=== PATIENT | male | born 1965 | race Caucasian/White ===

== ENCOUNTER 2017-04-22 20:51 | Emergency (ER) | payer OTHER ==
[2017-04-22 21:02] VITALS: BP 119/74; PULSE 68; TEMP 97.9; BMI 32.1
--- NOTE | 2017-04-22 21:51 | PDOC ---
History of Present Illness - General History Source: Patient Exam Limitations: No Limitations - History of Present Illness Initial Comments: 04/22/17 22:04 The patient is a 52 year old male with a significant past medical history of DM , HTN, and HLD who presents to the ED with left calf pain for a week. The patient reports a sudden onset of pain to the medial aspect of his left calf while he was running on a treadmill on Sunday. He states he felt like he pulled a muscle. Patient reports taking motrin for pain with slight relief of present symptoms. Patient states his symptoms progressively worsened earlier today and he reports an onset of sharp left calf pain while he was at work earlier today. He states he also noticed slight swelling to his left calf earlier. Denies fever or chills. Denies any other symptoms. Social hx: The patient works at the [employer]. <Marli Casas - Last Filed: 04/22/17 23:42> <Lucrecia Chu - Last Filed: 04/22/17 23:48> - General Chief Complaint: Pain, Acute Stated Complaint: LEFT LEG PAIN Time Seen by Provider: 04/22/17 21:35 Past History <Marli Casas - Last Filed: 04/22/17 23:42> - Past Medical History COPD: No Diabetes: Yes (2) HTN: Yes Hypercholesterolemia: Yes - Suicide/Smoking/Psychosocial Hx Smoking History: Former smoker Have you smoked in the past 12 months: No Information on smoking cessation initiated: No <Lucrecia Chu - Last Filed: 04/22/17 23:48> - Past Medical History Allergies/Adverse Reactions: Allergies Allergy/AdvReac Type Severity Reaction Status Date / Time No Known Allergies Allergy Verified 04/22/17 20:58 Home Medications: Ambulatory Orders Aspirin 81 mg PO DAILY 04/22/17 Atorvastatin Ca [Lipitor] 40 mg PO HS 04/22/17 Carvedilol [Coreg -] 6.25 mg PO BID 04/22/17 Glipizide Xl [Glucotrol Xl -] 10 mg PO DAILY@0700 04/22/17 Hydrochlorothiazide [Hctz -] 25 mg PO DAILY 04/22/17 Lisinopril [Prinivil -] 40 mg PO DAILY 04/22/17 Sitagliptin Phos/Metformin HCl [Janumet Xr 50-1,000 mg Tablet] 1 each PO ASDIR 04/22/17 Review of Systems - Review of Systems Able to Perform ROS?: Yes Comments:: 04/22/17 22:04 CONSTITUTIONAL: Absent: fever, no chills, no fatigue EYES: Absent: visual changes ENT: Absent: ear pain, no sore throat CARDIOVASCULAR: Absent: chest pain, no palpitations RESPIRATORY: Absent: cough, no SOB GI: Absent: abdominal pain, no nausea, no vomiting, no constipation, no diarrhea GENITOURINARY: Absent: dysuria, no frequency, no hematuria MUSKULOSKELETAL: + left calf pain Absent: back pain SKIN: Absent: rash NEURO: Absent: headache All Other Systems: Reviewed and Negative <Marli Casas - Last Filed: 04/22/17 23:42> *Physical Exam - Vital Signs Last Vital Signs Temp Pulse Resp BP Pulse Ox 97.9 F 68 16 119/74 97 04/22/17 21:00 04/22/17 21:00 04/22/17 21:00 04/22/17 21:00 04/22/17 21:00 - Physical Exam Comments: 04/22/17 22:04 GENERAL: Well-appearing, well-nourished. No apparent distress. HEENT: Normocephalic, atraumatic. PERRL, EOM intact. CARDIOVASCULAR: Normal S1, S2. Regular rate and rhythm. PULMONARY: Clear to auscultation bilaterally. ABDOMEN: Soft, non-distended, non-tender. EXTREMITIES: Normal ROM in all four extremities. No gross deformities. Dorsiflex, plantarflex. SKIN: Warm, dry. No rash NEUROLOGICAL: No focal neurological deficits. <Marli Casas - Last Filed: 04/22/17 23:42> - Vital Signs Last Vital Signs Temp Pulse Resp BP Pulse Ox 97.9 F 68 16 119/74 97 04/22/17 21:00 04/22/17 21:00 04/22/17 21:00 04/22/17 21:00 04/22/17 21:00 <Lucrecia Chu - Last Filed: 04/22/17 23:48> ED Treatment Course - RADIOLOGY Radiograph Interpretation: 04/22/17 23:42 US LOWER EXTREMITY VENOUS DOPPLER IMPRESSION: No DVT Reported by: Imaging financial foundations representative <Marli Casas - Last Filed: 04/22/17 23:42> Medical Decision Making - Medical Decision Making 04/22/17 23:42 Patient is refusing plain film. <Marli Casas - Last Filed: 04/22/17 23:42> - Medical Decision Making 04/22/17 23:44 Duplex doppler NEGATIVE for dvt in left leg pt told to please followup with orthopedist if pain persists IMP muscle strain <Lucrecia Chu - Last Filed: 04/22/17 23:48> *DC/Admit/Observation/Transfer - Attestations Scribe Attestion: 04/22/17 22:04 Documentation prepared by Marli Casas, acting as medical superintendent for Lucrecia Chu MD <Marli Casas - Last Filed: 04/22/17 23:42> <Lucrecia Chu - Last Filed: 04/22/17 23:48> Diagnosis at time of Disposition: Leg pain, left - Discharge Dispostion Disposition: HOME Condition at time of disposition: Stable - Referrals Referrals: Joceline Pak MD [Primary Care Provider] - Israel Torres MD [Staff Physician] - - Patient Instructions Printed Discharge Instructions: DI for Leg Pain, DI for Calf Muscle Strain Additional Instructions: please followup with an orthopedist if your pain persists take tylenol or motrin or aleve for pain - Post Discharge Activity
== END 2017-04-22 23:53 | disposition home or self-care (01) ==
LOC: JER 20:51 → JERFT 20:51 → JER 23:53
DX: S86.112A Strain of other muscle(s) and tendon(s) of posterior muscle group at lower leg level, left leg, initial encounter (principal); X50.3XXA Overexertion from repetitive movements, initial encounter; Y93.B1 Activity, exercise machines primarily for muscle strengthening; Y92.89 Other specified places as the place of occurrence of the external cause; Y99.8 Other external cause status
CPT/HCPCS: 93971-TC; 99281-25

== ENCOUNTER 2018-01-15 09:57 | Day surgery (SDC) | payer OTHER ==
[2018-01-09 14:49] VITALS: BMI 31.9
[2018-01-15 11:32] VITALS: TEMP 98.2
[2018-01-15 13:18] VITALS: BP 127/78; PULSE 81
--- NOTE | 2018-01-16 16:19 | PATH ---
Surgical Pathology Report Patient Name: FARTUN ARROYO [facility]. Rec. #: [id number] /Age/Gender: 1965 (Age: 52) / M Account: [id number] Location: [facility]-ENDOSCOPY Taken: 01/15/2018 Received: 01/15/2018 Reported: 01/16/2018 Physicians: Richar Allen D.O. Specimen(s) Received BX DESCENDING COLON POLYP Clinical History Colon screening Postoperative diagnosis: colon polyp, hemorrhoids Final Diagnosis DESCENDING COLON POLYP, POLYPECTOMY: HYPERPLASTIC POLYP. Electronically Signed Donnell Durant M.D. Gross Description Received in formalin, labeled "polyp descending" are 2 amor, irregular portions of soft tissue measuring 0.1 and 0.3 cm. in greatest dimension. The specimens are submitted in toto in one cassette. /01/15/2018 saudi01/15/2018
== END 2018-01-15 13:05 | disposition home or self-care (01) ==
LOC: JASU-ENDO 09:57
PROVIDERS: ATTEND Internal Medicine Gastroenterology
PROC: 0DBM8ZX Excision of Descending Colon, Via Natural or Artificial Opening Endoscopic, Diagnostic (ICD-10-PCS; principal; 2018-01-15 11:00)
DX: Z12.11 Encounter for screening for malignant neoplasm of colon (principal); K63.5 Polyp of colon
CPT/HCPCS: 88305-TC

== ENCOUNTER 2018-04-05 10:42 | Emergency (ER) | payer OTHER ==
[2018-04-05 11:02] VITALS: BP 126/74; PULSE 66; TEMP 98.5; BMI 31.3
--- NOTE | 2018-04-05 11:13 | PDOC ---
History of Present Illness - General Chief Complaint: Penile Drainage Stated Complaint: PENILE DRAINAGE Time Seen by Provider: 04/05/18 11:09 History Source: Patient Exam Limitations: No Limitations - History of Present Illness Travel History: No Initial Comments: 04/05/18 11:38 This is patient's second visit to emergency department in one week with complaints of pain, swelling, and redness to distal aspect of penis. States has some drainage and tenderness with urination. Patient was seen in an ER last week and was treated with a shot, and 2 different pills. Patient was able to contact [facility] who reported to me that both prescriptions were Bactrim twice a day for 1 week, and Keflex 500 mg tablet 3 times a day for one week which patient reports to be completed. Also given prescription for 0.5% hydrocortisone cream the patient used on the back of his head for inflammation and use some on his penis with some mild relief for a few days but then inflammation reoccurred. Patient reports his blood sugars have been rater than 300s the past few weeks due to increasing amount of stress in his life and poor diet. Reports that his partner for many years is suffering from cancer and undergoing chemotherapy, and has not had sexual relations for over 5 months. He is monogamous as is his partner is same. Ever had sexually transmitted disease 04/05/18 11:46 Timing/Duration: reports: getting worse Quality: reports: mild, moderate Abdominal Pain Onset Location: denies: generalized abdomen Activities at Onset: reports: none Alleviating Factors: improves with: None Past History - Travel Traveled outside of the country in the last 30 days: No Close contact w/someone who was outside of country & ill: No - Past Medical History Allergies/Adverse Reactions: Allergies Allergy/AdvReac Type Severity Reaction Status Date / Time No Known Allergies Allergy Verified 04/05/18 10:58 Home Medications: Ambulatory Orders Aspirin 81 mg PO DAILY 04/22/17 Atorvastatin Ca [Lipitor] 40 mg PO DAILY 04/22/17 Hydrochlorothiazide [Hctz -] 25 mg PO DAILY 04/22/17 Lisinopril [Prinivil -] 40 mg PO DAILY 04/22/17 Sitagliptin Phos/Metformin HCl [Janumet Xr 50-1,000 mg Tablet] 1 each PO DAILY 04/22/17 Methadone [Dolophine -] 35 mg PO DAILY 12/10/17 Fluconazole [Diflucan] 150 mg PO ONCE #1 tablet 04/05/18 Anemia: No Asthma: No Cancer: No Cardiac Disorders: No CVA: No COPD: No CHF: No Dementia: No Diabetes: Yes (NIDDM) GI Disorders: No Disorders: No HTN: Yes Hypercholesterolemia: Yes Liver Disease: No Seizures: No Thyroid Disease: No - Surgical History Abdominal Surgery: Yes (LEFT INGUINAL HERNIA REPAIR) Appendectomy: No Cardiac Surgery: No Cholecystectomy: No Lung Surgery: No Neurologic Surgery: No Orthopedic Surgery: No - Suicide/Smoking/Psychosocial Hx Smoking History: Former smoker Have you smoked in the past 12 months: No If you are a former smoker, when did you quit?: 2002 Information on smoking cessation initiated: No Hx Alcohol Use: Yes (OCCASIONAL) Drug/Substance Use Hx: (EX. INTRANASAL HEROIN,NO IVDA) Substance Use Type: None Hx Substance Use Treatment: No Review of Systems - Review of Systems Able to Perform ROS?: Yes Is the patient limited Spanish proficient: Yes Constitutional: Yes: Symptoms Reported, See HPI, Malaise. No: Fever HEENTM: No: Symptoms Reported Respiratory: No: Symptoms reported Cardiac (ROS): No: Symptoms Reported Integumentary: Yes: Symptoms Reported, See HPI, Erythema, Pruritus, Rash Neurological: No: Symptoms reported All Other Systems: Reviewed and Negative *Physical Exam - Vital Signs Last Vital Signs Temp Pulse Resp BP Pulse Ox 98.5 F 66 19 126/74 96 04/05/18 10:58 04/05/18 10:58 04/05/18 10:58 04/05/18 10:58 04/05/18 10:58 - Physical Exam General Appearance: Yes: Nourished, Appropriately Dressed, Apparent Distress, Mild Distress HEENT: positive: BRANDIE, Normal ENT Inspection, TMs Normal, Pharynx Normal Neck: positive: Tender, Supple. negative: Lymphadenopathy (R), Lymphadenopathy (L) Respiratory/Chest: positive: Lungs Clear, Normal Breath Sounds Cardiovascular: positive: Regular Rate Gastrointestinal/Abdominal: positive: Normal Bowel Sounds, Soft. negative: Tender, Guarding, Rebound Male Genitalia: negative: normal genitalia (uncircumcised penis with emesis, dribbling urine and erythematous. Is tender to touch. Has no testicular masses or inguinal hernia appreciated bilaterally, no tenderness.) Musculoskeletal: negative: Normal Inspection, Vertebral Tenderness Extremity: positive: Normal Capillary Refill, Normal Inspection. negative: Tender Integumentary: positive: Normal Color, Pale Neurologic: positive: technical sales consultant II-XII NML intact, Fully Oriented, Alert, Normal Mood/ Affect, Normal Response, Motor Strength 5/5 Moderate Sedation - Procedure Monitoring Vital Signs: Procedure Monitoring Vital Signs Temperature 98.5 F 04/05/18 10:58 Pulse Rate 66 04/05/18 10:58 Respiratory Rate 04/05/18 10:58 Blood Pressure 126/74 04/05/18 10:58 O2 Sat by Pulse Oximetry (%) 96 04/05/18 10:58 Progress Note - Progress Note Progress Note: Balanitis, will treat with dose of Diflucan, continue hydrocortisone cream and referred to urology for phimosis. Blood sugar 315, understands need for more strict control and when necessary hypoglycemia regime at home. Patient understands has been under undue stress with 's illness and has follow-up appointment with PMD on Sunday *DC/Admit/Observation/Transfer Diagnosis at time of Disposition: Balanitis - Discharge Dispostion Disposition: HOME Condition at time of disposition: Stable Decision to Admit order: No - Prescriptions Prescriptions: Fluconazole [Diflucan] 150 mg PO ONCE #1 tablet - Referrals Referrals: Valerie Lazo MD [Primary Care Provider] - Vitaliy Turk MD., [Staff Physician] - - Patient Instructions Printed Discharge Instructions: DI for Balanitis Additional Instructions: Rest, keep cool and dry- avoid strenuous activity or hot /humid environments Use looser fitting clothing, cotton products to allow breathing ability and drying of moist/hot environments on body including groin Hot tub baths 2-3 times daily until inflammation and infection resolved Try to identify cause for rash and avoid exposures You have been given 1 dose of Diflucan 150mg for treatment of Infection to Penis YOU NEED TO FOLLOW UP WITH YOUR DR FOR TREATMENT FOR YOUR BLOOD SUGARS! Follow-up with urologist for evaluation and potential circumcision for - problematic foreskin Followup with PMD in one to 2 days if no resolution - Post Discharge Activity Forms/Work/School Notes: Back to Work
[2018-04-05 12:10] LABS: URINE APPEARANCE CLEAR; URINE BILIRUBIN NEGATIVE (<2.0 mg/dL); URINE COLOR YELLOW; URINE GLUCOSE (UA) 3+ (NEGATIVE); URINE KETONE NEGATIVE (NEGATIVE); URINE LEUK ESTERASE NEGATIVE (NEGATIVE); URINE NITRITE NEGATIVE (NEGATIVE); URINE PROTEIN NEGATIVE (NEGATIVE)
== END 2018-04-05 13:11 | disposition home or self-care (01) ==
LOC: JERFT 10:42
DX: N48.1 Balanitis (principal); I10 Essential (primary) hypertension; E78.00 Pure hypercholesterolemia, unspecified; E11.65 Type 2 diabetes mellitus with hyperglycemia; Z79.84 Long term (current) use of oral hypoglycemic drugs
CPT/HCPCS: 36415; 81003; 82962; 87086; 87491; 87591; 99281-25

== ENCOUNTER 2023-05-23 16:24 | Emergency (ER) | payer OTHER ==
[2023-05-23 16:45] VITALS: BP 108/70; RESP 16; TEMP 98; BMI 34.4
[2023-05-23] MEDS: NAPROXEN 500 MG TABLET PO ONE (17:57)
[2023-05-23] MEDS ORDERED: NAPROXEN 500 MG TABLET ONE (17:58)
[2023-05-23 18:00] VITALS: PULSE 84
== END 2023-05-23 18:10 | disposition home or self-care (01) ==
LOC: JERFT 16:24
DX: R07.89 Other chest pain (principal); S20.211A Contusion of right front wall of thorax, initial encounter; W01.0XXA Fall on same level from slipping, tripping and stumbling without subsequent striking against object, initial encounter
CPT/HCPCS: 71046-TC-FY; 99283-25